=== PATIENT | male | born 1985 | race Caucasian/White ===

== ENCOUNTER 2023-03-14 14:55 | Emergency (ER) | payer OTHER, SELFPAY ==
--- NOTE | ~2023-03-14 | XR_ITS ---
EXAMINATION: XR chest 2V DATE: 03/14/2023 15:28 INDICATION: Shortness of breath TECHNIQUE: Frontal and lateral views of the chest are obtained COMPARISON: None available FINDINGS: The lungs are free of acute opacities. No pleural effusion or pneumothorax. The cardiomedia stinal silhouette is normal. The visualized bones and soft tissues are unremarkable. IMPRESSION: 1. No acute cardiopulmonary abnormality. Reviewed, dictated and finalized at location [facility] [place] [facility]
[2023-03-14 14:55] VITALS: BP 152/96; PULSE 76; RESP 18; TEMP 36.6; O2SAT 99
--- NOTE | 2023-03-14 15:01 | ECG_ITS ---
Measurements Intervals [place] Rate: 102 P: 40 HI: 144 QRS: 29 QRSD: 97 T: 56 QT: 291 QTc: 380 Interpretive Statements SINUS TACHYCARDIA POSSIBLE RIGHT VENTRICULAR CONDUCTION DELAY [RSR (QR) IN V1/V2] BORDERLINE ECG NO PREVIOUS ECG AVAILABLE FOR COMPARISON Electronically Signed On 03-15-2023 10:45:27 [employer] by Anthony Romo M.D.
--- NOTE | 2023-03-14 15:02 | ED.GENADULT ---
HPI - General Adult General Chief complaint: Upper Respiratory Infection Stated complaint: SOB Time Seen by Provider: 03/14/23 15:01 Source: patient Mode of arrival: ambulatory Limitations: no limitations History of Present Illness HPI narrative: 38-year-old: Minor complains of cough productive of clear sputum for the last week associated with intermittent shortness of breath and then had 2 hours of anterior chest tightness this prior to coming to the emergency department. He has had his night sweats nasal congestion denies any fever. Denies any nausea vomiting diarrhea swelling lumps or bumps dizziness or lightheadedness rash or itching bleeding or bruising or any other complaints. Denies any significant past medical history is not on any medications has no allergies has not had any surgeries. Related Data Home Medications Medication Instructions Recorded Confirmed No Home Medications 03/14/23 03/14/23 Allergies Allergy/AdvReac Type Severity Reaction Status Date / Time No Known Allergies Allergy Verified 03/14/23 14:59 Review of Systems Review of Systems: All systems reviewed & are unremarkable except as noted in HPI and below Exam Narrative: Patient is a Male female? and appears in no apparent distress. ? Head is normocephalic atraumatic. ? Eyes:? Pupils are equal round react light extraocular movements are intact. ? Ears:? TMs are normal .? Ear canals are normal.? Hearing is grossly normal. ? Nose:? Normal. ? Throat:? Oropharynx is clear with moist mucous membranes.? Posterior pharynx is clear with no exudates. ? Neck:? Supple no lymphadenopathy.? Full range of motion? without tenderness. ??Lungs:? bronchial breath sounds with good air exchange. Without wheezes rales or rhonchi Thorax:? Chest wall nontender without crepitation. ? Heart:? Regular rate and rhythm without murmurs gallops or rubs. ? Back:? Nontender. ? Abdomen:? Positive bowel sounds, soft, nontender, no hepatosplenomegaly or masses, no CVA tenderness, no abdominal bruits, no guarding or rebound. ? Extremities:? Full range of motion nontender .?? No cyanosis clubbing or edema. ?Neuro:? alert and oriented x4.? Motor and sensory grossly intact.? Speech is normal.? Affect normal.? Cranial nerves 2-12 are normal . ? Skin:? Warm and dry without lesions. Course Vital Signs Vital signs: Vital Signs Oxygen Delivery Room Air 03/14/23 14:55 Oxygen Delivery Room Air 03/14/23 14:55 Medical Decision Making MDM Narrative Medical decision making narrative: Patient placed in room 2 history and physical was performed EKG was done patient given albuterol sent for chest x-ray COVID flu RSV were performed. Influenza a was positive other tests were negative. Independent Historian: Patient? Differential Dx includes but not limited to: COVID RSV flu asthma pneumonia Medications were Reviewed:? no home meds? Medications treatments given: albuterol nebulizer he get some benefit from this. He stated that when he was a kid he had asthma and used inhaler. Independently Interpreted by me:? ? chest x-ray showed no active disease as independently interpreted by me. EKG showed sinus tachycardia at 1:02 a.m. with a RSR' pattern no acute ST T wave abnormalities normal axis impression abnormal EKG as independently interpreted by me.? External Source Review:?? Medical conditions/social Situation Impacting Patients Care:?? Shared decision Making:? evaluation discussed with patient all questions were asked and answered patient agreed with the plan. Put him on albuterol inhaler and a note to return to work tomorrow. Tylenol ibuprofen as needed. ? Clinical impression:? ? Influenza a ? Patient disposition: ? discharge home ? Condition at discharge: stable improved Vital Signs Vital Signs: Vital Signs Oxygen Delivery Room Air 03/14/23 14:55 Oxygen Delivery Room Air 03/14/23 14:55 Lab Data Labs: Lab Results
[2023-03-14] MEDS: ALBUTEROL SULFATE NEB 2.5 MG/3 ML INH INHALATION (15:18)
[2023-03-14 15:38] LABS: SARS-CoV-2 RNA PCR Negative (Negative)
[2023-03-14 15:39] LABS: Influenza A QL RT-PCR Positive (Negative); Influenza B QL RT-PCR Negative (Negative); RSV RNA, RT-PCR Negative (Negative)
[2023-03-14 15:51] VITALS: BP 155/93; PULSE 80; RESP 18; O2SAT 100
== END 2023-03-14 15:52 | disposition home or self-care (01) ==
PROVIDERS: Emergency Provider Emergency Medicine; PCP Physician Assistant
DX: J10.1 Influenza due to other identified influenza virus with other respiratory manifestations (principal); Z20.822 Contact with and (suspected) exposure to COVID-19
CPT/HCPCS: 71046; 87637; 93005; 99283